=== PATIENT | female | born 1955 | race African-American/Black ===

== ENCOUNTER 2021-04-30 09:01 | Emergency (ER) | payer MEDICARE, SELFPAY ==
--- NOTE | 2021-04-30 09:20 | ED.EYEPROB ---
HPI - Eye Problem General Chief complaint: Eye Problems Stated complaint: Eye Pain Time Seen by Provider: 04/30/21 09:21 Source: patient and RN notes reviewed Mode of arrival: ambulatory Limitations: no limitations History of Present Illness HPI Narrative: 66-year-old female presents to the [facility] with complaints of left eye redness and inflammation. States has been going on for about a week. States it got worse on Saturday. Recently had eyelashes put on. Patient states only past medical history of seasonal allergies. Related Data Home Medications Medication Instructions Recorded Confirmed fluticasone propion-salmeterol 2 inh INHALATION DAILY 04/30/21 04/30/21 Allergies Allergy/AdvReac Type Severity Reaction Status Date / Time codeine Allergy nausea Verified 04/30/21 09:27 tramadol Allergy Nausea Verified 04/30/21 09:27 Review of Systems Review of Systems: All systems reviewed & are unremarkable except as noted in HPI and below Constitutional: Constitutional: Reports no additional constitutional complaints, Denies chills and Denies fever(s) Eyes: Eyes: Reports as per HPI, Reports eye discharge, Reports irritation, Reports itchy eyes, Denies loss of vision, Denies other visual disturbances and Reports photophobia ENT: Reports system reviewed and no additional complaints, except as documented Cardiovascular: Cardiovascular: Reports no additional cardiovascular complaints Respiratory: Respiratory: Reports no additional respiratory complaints Gastrointestinal: Gastrointestinal: Reports no additional gastrointestinal complaints Musculoskeletal: Musculoskeletal: Reports no additional musculoskeletal complaints Integumentary/Breasts: Skin/Breast: Reports system reviewed and no additional complaints, except as docu Neurologic: Reports system reviewed and no additional complaints, except as documented Psychiatric: Psychiatric: Reports no additional psychiatric complaints Allergic/Immunologic: Allergic/Immunologic: Reports no additional allergic/immunologic complaints PMFSH Surgical History Surgical History (Updated 04/30/21 @ 10:42 by Sammei Schroeder) No significant past surgical history Social History Social History (Updated 04/30/21 @ 10:42 by Sammie Schroeder) Living arrangements: with family Gender identity (if verbalized by the patient): Female Comments My past medical Exam Const: General: healthy appearing, no acute distress and alert Nutritional Appearance: well nourished Orientation/consciousness: patient oriented x3 Limitations: no limitations HENMT: Head: normal to inspection Eyes: Conjunctivae: conjunctival abnormality left conjunctival injection diffuse (Erythema) and discharge purulent; without subconjunctival hemmorhages Pupils: Equal, round and reactive pupils present Neck: Neck: normal visual inspection, no lymphadenopathy and no meningeal signs Chest: Chest palpation & inspection: normal inspection of the chest Resp: Effort & Inspection: normal respiratory effort and no use of accessory muscles Auscultation: clear to auscultation bilaterally Cardio: Rate: regular rate Rhythm: regular rhythm Back/Spine/Pelvis: Back: no CVA tenderness Skin: General skin exam: normal color Rashes: no rashes Wounds: no wounds Neuro: General: patient oriented x3, moves all extremities, no meningeal signs and no focal motor deficits Speech: normal speech Gait exam (Neuro): Normal gait present Extrem: General: normal to inspection Psych: Appearance: grossly normal and well kempt Mental Status: mental status grossly normal Affect: normal affect Attitude: cooperative Thought content: Yes Normal thought content present Course Course Emergency Course: Discharge instructions reviewed with patient, as well as provided in writing per nursing staff. The instructions also include specific and strict return/GO TO THE ER as well as f/u information. All questions have been answered, a
[2021-04-30 09:21] VITALS: BP 136/82; PULSE 68; RESP 16; TEMP 36.4; O2SAT 100
[2021-04-30 09:28] VITALS: BP 136/82; PULSE 68; RESP 16; TEMP 36.4; O2SAT 100
== END 2021-04-30 09:30 | disposition home or self-care (01) ==
PROVIDERS: Emergency Provider Nurse Practitioner
DX: H10.9 Unspecified conjunctivitis (principal)
CPT/HCPCS: 99213; G0463